=== PATIENT | male | born 1990 | race Caucasian/White ===

== ENCOUNTER 2024-01-02 07:16 | Outpatient (CLI) | payer OTHER, SELFPAY | END 2024-01-02 07:17 | disposition home or self-care (01) | PROVIDERS: Visit Provider Family Medicine | DX: Z13.220 Encounter for screening for lipoid disorders (principal); Z13.228 Encounter for screening for other metabolic disorders; Z13.29 Encounter for screening for other suspected endocrine disorder | CPT/HCPCS: 80053; 80061; 84443 ==

== ENCOUNTER 2024-03-19 19:40 | Outpatient (CLI) | payer OTHER, SELFPAY ==
--- OUTSIDE RECORDS SUMMARY | 2024-03-19 19:43 | XMS_ITS | Clinical Summary ---
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 6 tablet 07/03/2023 Active Social History Tobacco Use Types Packs/Day Years Used Date Smoking Tobacco: Never Smokeless Tobacco: Never Tobacco Cessation:Counseling Given: Not Answered Adolescent Education Answer Date Record ed Getting School Help Needed Not on file 08/20 Sex and Gender Information Value Date Recorded Sex Assigned at Not on file Gender Identity Not on file Sexual Orientation Not on file Last Filed Vital Signs Vital Sign Reading Time Taken Comments Blood Pressure 118/88 07/03/2023 1:30 PM CDT Pulse 124 07/03/2023 1:30 PM CDT Temperature 37.5 ??C (99.5 ??F) 07/03/2023 1:30 PM CD T Respiratory Rate 20 07/03/2023 1:30 PM CDT Oxygen Saturation 97% 07/03/2023 1:30 PM CDT Inhaled Oxygen Concentration - - Weight 115.7 kg (255 lb) 07/03/2023 1:30 PM CDT Height - - Body Mass Index - - Plan of Treatment Health Maintenance Due Date Last Done Comments ADVANCE CARE PLANNING 1991 ANNUAL REVIEW OF HM ORDERS 1991 HIV SCREENING 2006 HEPATITIS C SCREENING 2009 YEARLY PREVENTIVE VISIT 09/03/2022 09/03/2021 COVID-19 Vaccine ( season) 2023 07/28/2022, 09/08/2021, 03/04/2021, Additional history exists PHQ-2 (once per calendar year) 2023 INFLUENZA VACCINE (Season Ended) 2024 07/28/2022, 08/03/2021, 08/28/2020, Additional history exists DTAP/TDAP/TD IMMUNIZATION (8 - Td or Tdap) 03/18/2027 03/18/2017, 09/07/2010, 06/04/2004, Additional history exists IPV IMMUNIZATION Completed 05/01/1997, 12/1992, 05/11/1992, Additional history exists HEPATITIS B IMMUNIZATION Completed 000, 02/03/2000, 11/29/1999 MENINGITIS IMMUNIZATION Aged Out 01/21/2008, 01/20 No longer eligible based on patient's age to complete this topic HPV IMMUNIZATION Aged Out No longer e ligible based on patient's age to complete this topic Pneumococcal Vaccine: Pediatrics (0 to 5 Years) and At-Risk Patients (6 to 64 Years) Aged Out No longer eligible based on patient's age to complete this topic RSV MONOCLONAL ANTIBODY Aged Out No l onger eligible based on patient's age to complete this topic Care Teams Shock Absorber Installer Relationship Specialty Start Date End Date No Ref-Primary, Physician PCP - General 07/03/23
--- OUTSIDE RECORDS SUMMARY | 2024-03-19 19:43 | XMS_ITS | Referral Summary ---
Author Name Unknown Organization [facility] Address [address] [place] [id number] Care Team Providers Care Seat Covers Trimmer Name Role Phone No Ref-Primary, Physician Primary [...] Mass Index - - Plan of Treatment Not on file Care Teams Seat Covers Trimmer Relationship Specialty Start Date End Date No Ref-Primary, Physician PCP - General 07/03/23
--- OUTSIDE RECORDS SUMMARY | 2024-03-19 19:43 | XMS_ITS | Clinical Summary ---
Author Name Unknown Organization [facility] Address [address] [place] [address] Care Team Providers Care New Patient Escort Name Role Phone Found, No Pcp MD Primary Care Provider Unavailab le Source Comments You are receiving this document as you are listed as the primary care provider,follow-up provider, or the patient has been referred to you for consultation.This is in compliance with the Medicare and[facility] EHR Incentive Program,which states Providers who transition their patient to another setting of careor provider of care or refers their patient to another provider of care shouldprovide summary care record for each transition of care or referral. [employer] Allergies Active Allergy Reactions Criticality Noted Date Comments Paroxetine Other, see comments High 03/19/2013 Causes Depression to Worsen Medications Medication Sig Dispensed Refills Start Date End Date Status omeprazole (PRILOSEC) 20 MG capsuleIndications:Ga stroesophageal reflux disease, unspecified whether esophagitis present Take 1 Capsule (20 mg) by mouth daily. Take 1 hour before a meal. 30 Capsule 01/18/2022 Active Active Problems Problem Noted Date Diagnosed Date Obesity, Class I, BMI 30-34.9 09/03/2021 Resolved Problems Problem Noted Date Diagnosed Date Resolved Date Major depressive disorder, s javi episode, moderate 08/30/2011 09/03/2021 Anxiety 08/30/2011 09/03/2021 Other acne 09/07/2010 09/03/2021 Overview: Acne Vulgaris Immunizations Name Administration Dates Next Due DTP 07/08/1993, 2,05/11/1992,1991 DTaP 05/01/1997 Flu Vac Preserv Free (3+yrs) 09/07/2010,08/29/20 07 HepA Ped/Adol (1-18 yrs) 09/07/2010,01/21/2008 HepB Adult (Engerix-B, 20+ y rs, 3 dose series) 02/03/2000,11/29/1999 HepB Ped/Adol (0-18 yrs) 06/27/2000 Hib (ActHIB) 07/14/1993, 2,05/11/1992,1991 Influenza IIV4 (Quadrivalent ) 0.5mL (56581) 08/03/2021,08/28/2020 Influenza, Unspecified Formulation 09/07/2010, MCV4 (Menactra) 01/21/2008 MMR 11/29/1999,07/14/1993 MPSV4 (Menomune) 01/21/2008 Moderna Monovalent 12+ 03/04/2021,02/04/2021 OPV, Trivalent (Orimune or tOPV) 997,07/08/1993,05/11/1992,1991 Pfizer Monovalent 12+ Purple Top 09/08/2021 TDAP (ADACEL) 09/07/2010 Td 06/04/2004 Tdap 03/18/2017 Varicella 01/21/2008,11/29/1999 Family History Medical History Relation Name Comments Diabetes Paternal Aunt Diabetes Paternal Grandfather Cancer Negative Family History Heart Failure Negative Family History High Cholesterol Negative Family History Relation Name Status Comments Paternal Aunt Paternal Grandfather Social History Tobacco Use Types Packs/Day Years Used Date Smoking Tobacco: Former Cigarettes 0.5 3 0 07/31/2008 - 07/31/2011 Electric Cigarette Smokeless Tobacco: Former Quit: 07/31/2011 Comments:Smoking History Pac ks/day: Alcohol Use Standard Drinks/Week Comments Yes 0 (1 standard drink = 0.6 oz pur e alcohol) 1x per month Sex and Gender Information Value Date Recorded Sex Assigned at Not on file Gender Identity Not on file Sexual Orientation Not on file Last Filed Vital Signs Vital Sign Reading Time Taken Comments Blood Pressure 148/97 09/18/2023 8:14 AM KNIFEMAN Pulse 103 09/18/2023 8:14 AM KNIFEMAN Temperature 36.9 ??C (98.4 ??F) 09/18/2023 8:14 AM CS T Respiratory Rate 20 09/18/2023 8:14 AM KNIFEMAN Oxygen Saturation 98% 09/18/2023 8:14 AM KNIFEMAN Inhaled Oxygen Concentration - - Weight 111.6 kg (246 lb) 01/18/2022 8:06 AM CDT Height 177.8 cm (5' 10) 01/18/2022 8:06 AM CDT Body Mass Index 35.3 01/18/2022 8:06 AM CDT Plan of Treatment Health Maintenance Due Date Last Done Comments Hep C Screening (Preventive Services) 1991 HIV Screening (Preventive Services) 2007 Adult Preventive Visit 09/03/2023 09/03/2021 DTaP/Tdap/Td (8 - Tdap) 03/18/2027 03/18/20 17, 09/07/2010, 06/04/2004, Additional history exists Zoster/Shingles (1 of 2) 2041 Hib Completed 07/14/1993, 01/1992, 05/11/1992, Additional history exists IPV (Polio) Completed 05/01/1997, 0 12/1992, 05/11/1992, Additional history exists HepB Completed 06/27/2000, 01/06, 11/29/1999 MCV4 Completed 01/21/2008, 01/21/2008 HepA Completed 09/07/2010, 01/21/2008 COVID-19 Vaccine Completed 09/16/2023, , 09/08/2021, Additional history exists Influenza Completed 09/16/2023, 07/08, 08/03/2021, Additional history exists HPV Vaccine Aged Out No longer eligi ble based on patient's age to complete this topic Pneumococcal Aged Out No longer eligi ble based on patient's age to complete this topic Care Teams New Patient Escort Relationship Specialty Start Date End Date Found, No Pcp, [address] [place] [address] PCP - General 08/22/16
--- NOTE | 2024-03-27 09:32 | W.PM.SLEEP ---
Sleep Study Details Details Interpreting Provider: Manuelito Date of Sleep Study: 03/19/24 Sleep Study Details: STUDY TYPE:? Home unattended ? BMI:? 36.4 ORDERING PROVIDER:? Manuelito INDICATION:? Concerns about sleep appy ? SLEEP SUMMARY:? 393 minutes monitored RESPIRATORY SUMMARY:? AHI 10.7, supine 14.4, right lateral 7.9 Low oxygen 87 0.4% of study oxygen less than 90% Snoring 79.6% PERIODIC LIMB MOVEMENTS OF SLEEP:? Not recorded CARDIAC:? Range 70-149, mean 89.9 IMPRESSION:? Mild obstructive sleep apnea with supine position dependency. RECOMMENDATION: If patient is symptomatic treatment options include CPAP, dental appliance and/or airway expansion surgery. Weight loss is also recommended.
== END 2024-03-19 19:41 | disposition home or self-care (01) ==
LOC: SLEEP 19:40
PROVIDERS: PCP Family Medicine; Visit Provider Otolaryngology
DX: G47.33 Obstructive sleep apnea (adult) (pediatric) (principal)
CPT/HCPCS: 95806

== ENCOUNTER 2025-03-04 11:12 | Outpatient (CLI) | payer OTHER, SELFPAY | END 2025-03-04 11:13 | disposition home or self-care (01) | PROVIDERS: PCP Family Medicine; Visit Provider Family Medicine | DX: Z00.01 Encounter for general adult medical examination with abnormal findings (principal); R03.0 Elevated blood-pressure reading, without diagnosis of hypertension; Z13.6 Encounter for screening for cardiovascular disorders | CPT/HCPCS: 80053; 80061 ==